=== PATIENT | female | born 1980 | race Caucasian/White ===

== ENCOUNTER 2023-06-15 23:54 | Emergency (ER) | payer MEDICAID ==
[~2023-06-15] VITALS: Ht 157.5 cm; Wt 69.4 kg
[2023-06-16 00:06] VITALS: BP_SYST 125; PULSE 91; RESP 17; TEMP 97.8; O2SAT 100
[2023-06-16 00:48] LABS: BASOPHILS % (AUTO) 0.2 % (0.0-2.0); EOSINOPHILS # (AUTO) 0.2 K/uL (0.0-0.4); EOSINOPHILS % (AUTO) 2.8 % (0.0-4.0); HEMATOCRIT 30.7 % (36-48); HEMOGLOBIN 10.5 g/dL (12.0-16.0); LYMPHOCYTES # (AUTO) 2.6 K/uL (1.0-5.5); LYMPHOCYTES % (AUTO) 42.3 % (20.5-51.5); MEAN CORPUSCULAR HEMOGLOBIN 29 pg (27-31); MEAN CORPUSCULAR HGB CONC 34 % (32-36); MEAN CORPUSCULAR VOLUME 85 fL (79.0-98.0); MONOCYTES # (AUTO) 0.7 K/uL (0.0-1.0); NEUTROPHILS # (AUTO) 2.6 K/uL (1.8-7.7); NEUTROPHILS % (AUTO) 42.7 % (40.0-70.0); PLATELET COUNT (AUTO) 315 K/uL (130-430); RED BLOOD CELL COUNT(AUTO) 3.63 MIL/uL (4.2-6.2); RED CELL DISTRIBUTION WIDTH 12.4 % (9.0-15.0); WHITE BLOOD COUNT (AUTO) 6.1 K/uL (4.8-10.8)
[2023-06-16 01:01] LABS: ALANINE AMINOTRANSFERASE 20 U/L (12-78); ALBUMIN 3.3 g/dL (3.4-4.8); ANION GAP 9 (5-15); ASPARTATE AMINOTRANSFERASE 17 U/L (10-37); CARBON DIOXIDE 26 mmol/L (23-29); CHLORIDE 107 mmol/L (98-107); GFR AFRICAN AMERICAN 174 mL/min (>90); GFR NON AFRICAN-AMERICAN 144 mL/min (>90); GLUCOSE 117 mg/dL (74-106); POTASSIUM 3.5 mmol/L (3.5-5.1); SODIUM SERUM 142 mmol/L (136-145); TOTAL BILIRUBIN 0.5 mg/dL (0.0-1.0); UREA NITROGEN, BLOOD 20 mg/dL (8-21)
[2023-06-16] MEDS ORDERED: ACET-2634 PO (01:50)
[2023-06-16] MEDS ORDERED: FAMO20TA8 PO (01:50)
[2023-06-16 01:58] VITALS: BP_SYST 125; PULSE 87; RESP 17; TEMP 98; O2SAT 96
== END 2023-06-16 01:58 | disposition home or self-care (01) ==
LOC: SED 23:54
DX: K29.70 Gastritis, unspecified, without bleeding (principal); R07.89 Other chest pain; Z79.899 Other long term (current) drug therapy
CPT/HCPCS: 36415; 71045; 80053; 83690; 83880; 84484; 85025; 93005; 99285